=== PATIENT | male | born 1980 | race Caucasian/White ===

== ENCOUNTER 2024-01-23 08:04 | Outpatient (CLI) | payer BC ==
[2024-01-23] MEDS ORDERED: Magnevist 469MG/ML 20 ML VIAL ONE (10:07)
== END 2024-01-23 08:05 | disposition home or self-care (01) ==
LOC: CSHMRI 08:04
PROVIDERS: ATTEND Surgery
DX: G95.89 Other specified diseases of spinal cord (principal); M51.37 Other intervertebral disc degeneration, lumbosacral region
CPT/HCPCS: 72158; A9579

== ENCOUNTER 2024-05-20 07:13 | Outpatient (CLI) | payer BC | END 2024-05-20 07:14 | disposition home or self-care (01) | LOC: CSHCT 07:13 | PROVIDERS: ATTEND Family Medicine | DX: R10.2 Pelvic and perineal pain (principal); K61.0 Anal abscess; R91.8 Other nonspecific abnormal finding of lung field | CPT/HCPCS: 74177 ==